=== PATIENT | female | born 1995 | race Caucasian/White ===

== ENCOUNTER 2016-07-02 17:48 | Emergency (ER) | payer BC, OTHER ==
[2016-07-02] MEDS ORDERED: SODIUM CHLORIDE 0.9% 1,000 ML IV ONE (18:18)
[2016-07-02] MEDS ORDERED: methylPREDNISolone SOD SUCCI 125 MG/2 ML VIAL IV STA (18:22)
--- NOTE | 2016-07-02 18:27 | ED ---
General Adult HPI - General Chief complaint: Recheck/Abnormal Lab/Rx Stated complaint: dehyrated Time Seen by Provider: 07/02/16 18:03 Source: patient, RN notes reviewed Mode of arrival: ambulatory Limitations: no limitations - History of Present Illness Initial comments: Patient is a 20-year-old female with chief complaint of sore throat for approximately 3 days. Patient reports that she was diagnosed with strep throat on with a positive rapid strep in [place]. She was placed on azithromycin. Patient reports that today would be her last day of antibiotics. Patient reports that she went to urgent care today and they did give her an injection of clindamycin. She was instructed to come here and she feels that she is dehydrated. Patient reports that she's taken Motrin and Tylenol. If that she's having a difficult time swallowing but does not feel that her airway is closing. Patient reports that she is currently taking doxycycline for acne. Patient denies any recent fever, chills, shortness of breath, chest pain, back pain, abdominal pain, nausea vomiting, numbness or tingling, dysuria or hematuria, constipation or diarrhea, headaches or visual changes, or any other current symptoms - Related Data Home Medications Medication Instructions Recorded Confirmed Levonor 0.15/0.03 Tab 1 tab PO DAILY 04/14/16 04/14/16 Previous Rx's Medication Instructions Recorded Metoclopramide [Reglan] 10 mg PO BID #12 tab 04/14/16 Clindamycin [Cleocin] 300 mg PO TID 10 Days 07/02/16 Allergies Allergy/AdvReac Type Severity Reaction Status Date / Time Penicillins Allergy Rash/Hives Verified 07/02/16 18:00 Review of Systems ROS Statement: Those systems with pertinent positive or pertinent negative responses have been documented in the HPI. ROS Other: All systems not noted in ROS Statement are negative. Past Medical History Past Medical History: No Reported History History of Any Multi-Drug Resistant Organisms: None Reported Additional Past Surgical History / Comment(s): rt ankle surgery Past Psychological History: No Psychological Hx Reported Smoking Status: Current every day smoker Past Alcohol Use History: Occasional Past Drug Use History: None Reported General Exam - General Exam Comments Initial Comments: Well-appearing 20-year-old female. Patient doesn't appear to be in any acute distress. Limitations: no limitations General appearance: alert, in no apparent distress Head exam: Present: atraumatic, normocephalic, normal inspection Eye exam: Present: normal appearance, PERRL, EOMI. Absent: scleral icterus, conjunctival injection, periorbital swelling ENT exam: Present: normal exam, mucous membranes moist, TM's normal bilaterally. Absent: normal oropharynx (Patient has enlarged erythematous tonsils with multiple exudates. No evidence of tonsillar abscess.) Neck exam: Present: normal inspection. Absent: tenderness, meningismus, lymphadenopathy Respiratory exam: Present: normal lung sounds bilaterally. Absent: respiratory distress, wheezes, rales, rhonchi, stridor Cardiovascular Exam: Present: regular rate, normal rhythm, normal heart sounds. Absent: systolic murmur, diastolic murmur, rubs, gallop, clicks GI/Abdominal exam: Present: soft, normal bowel sounds. Absent: distended, tenderness, guarding, rebound, rigid Extremities exam: Present: normal inspection, full ROM, normal capillary refill. Absent: tenderness, pedal edema, joint swelling, calf tenderness Back exam: Present: normal inspection Neurological exam: Present: alert, oriented X3, CN II-XII intact Psychiatric exam: Present: normal affect, normal mood Skin exam: Present: warm, dry, intact, normal color. Absent: rash Course Vital Signs 07/02/16 17:58 Temperature 98.0 F Pulse Rate 100 Respiratory 20 Rate Blood Pressure 126/89 O2 Sat by Pulse 99 Oximetry Medical Decision Making - Medical Decision Making Patient is a 20-year-old female with chief complaint of sore throat for approximately 3 days. Patient reports that she was diagnosed with strep throat on with a positive rapid strep in [place]. She was placed on azithromycin. Patient reports that today would be her last day of antibiotics. Patient was given IV fluids and lab work was obtained. Patient did have negative rapid strep and heterophile. We will add the EBV titers. Patient does not have a white count any joint abnormalities. Patient has no evidence of tonsillar abscess but her tonsils are covered with exudate. Is likely the patient could have mono and we do not have a positive mono heterophile today. I did discuss the case with Dr. Logan. He did do a [id number] interview with the patient. We discussed the patient needs to discontinue taking her doxycycline while taking clindamycin. We did discuss the risk of C. difficile and patient needs to take yogurt and probiotics with taking antibiotic. I did advise patient that she is follow-up with her primary care provider on Monday or Monday. Patient was given a note for school. Return parameters were discussed. We also discussed the patient likely will need to have her tonsils removed at some point as this is a recurring issue. - Lab Data Result diagrams: 07/02/16 18:35 07/02/16 18:35 Lab Results 07/02/16 07/02/16 07/02/16 Range/Units 18:35 18:35 18:35 WBC 5.5 (4.0-11.0) k/uL RBC 4.75 (3.80-5.40) m/uL Hgb 14.6 (11.4-16.0) gm/dL Hct 41.5 (34.0-46.0) % MCV 87.3 (80.0-100.0) fL MCH 30.7 (25.0-35.0) pg MCHC 35.2 (31.0-37.0) g/dL RDW 12.6 (11.5-15.5) % Plt Count 173 (150-450) k/uL Neutrophils % 65 % Lymphocytes % 22 % Monocytes % 8 % Eosinophils % 1 % Basophils % 1 % Neutrophils # 3.6 (1.3-7.7) k/uL Lymphocytes # 1.2 (1.0-4.8) k/uL Monocytes # 0.4 (0-1.0) k/uL Eosinophils # 0.1 (0-0.7) k/uL Basophils # 0.0 (0-0.2) k/uL Sodium 140 (137-145) mmol/L Potassium 3.9 (3.5-5.1) mmol/L Chloride 101 (98-107) mmol/L Carbon Dioxide 23 (22-30) mmol/L Anion Gap 16 mmol/L BUN 15 (7-17) mg/dL Creatinine 0.76 (0.52-1.04) mg/dL Est GFR (MDRD) Af Amer >60 (>60 ml/min/1.73 sqM) Est GFR (MDRD) Non-Af >60 (>60 ml/min/1.73 sqM) Glucose 66 L (74-99) mg/dL Calcium 8.8 (8.4-10.2) mg/dL Total Bilirubin 0.6 (0.2-1.3) mg/dL AST 25 (14-36) U/L ALT 29 (9-52) U/L Alkaline Phosphatase 64 (38-126) U/L Total Protein 7.1 (6.3-8.2) g/dL Albumin 4.0 (3.5-5.0) g/dL Heterophile Antibody Negative (Negative) Group A Strep Rapid (Negative) 07/02/16 Range/Units 18:35 WBC (4.0-11.0) k/uL RBC (3.80-5.40) m/uL Hgb (11.4-16.0) gm/dL Hct (34.0-46.0) % MCV (80.0-100.0) fL MCH (25.0-35.0) pg MCHC (31.0-37.0) g/dL RDW (11.5-15.5) % Plt Count (150-450) k/uL Neutrophils % % Lymphocytes % % Monocytes % % Eosinophils % % Basophils % % Neutrophils # (1.3-7.7) k/uL Lymphocytes # (1.0-4.8) k/uL Monocytes # (0-1.0) k/uL Eosinophils # (0-0.7) k/uL Basophils # (0-0.2) k/uL Sodium (137-145) mmol/L Potassium (3.5-5.1) mmol/L Chloride (98-107) mmol/L Carbon Dioxide (22-30) mmol/L Anion Gap mmol/L BUN (7-17) mg/dL Creatinine (0.52-1.04) mg/dL Est GFR (MDRD) Af Amer (>60 ml/min/1.73 sqM) Est GFR (MDRD) Non-Af (>60 ml/min/1.73 sqM) Glucose (74-99) mg/dL Calcium (8.4-10.2) mg/dL Total Bilirubin (0.2-1.3) mg/dL AST (14-36) U/L ALT (9-52) U/L Alkaline Phosphatase (38-126) U/L Total Protein (6.3-8.2) g/dL Albumin (3.5-5.0) g/dL Heterophile Antibody (Negative) Group A Strep Rapid Negative (Negative) Disposition Clinical Impression: Pharyngitis Disposition: HOME SELF-CARE Condition: Good Instructions: Pharyngitis (ED) Additional Instructions: Patient advised to discontinue taking doxycycline while taking the new antibiotic of clindamycin. Patient advised to follow-up with primary care provider on Monday or Monday. Patient also advised to repeat titers in approximately 3 weeks. Patient voiced return the emergency Department if any alarming signs or symptoms occur. Continue taking Motrin Tylenol for pain and fevers. Prescriptions: Clindamycin [Cleocin] 300 mg PO TID 10 Days Referrals: Katalina Carver DO [Primary Care Provider] - 1-2 days Time of Disposition: 19:39
[2016-07-02] MEDS ORDERED: SODIUM CHLORIDE 0.9% 1,000 ML IV SCH (18:30)
[2016-07-02 18:45] LABS: Basophils % (A) 1 %; CHCM 35.8; Eosinophils # (A) 0.1 k/uL (0-0.7); Eosinophils % (A) 1 %; HCT 41.5 % (34.0-46.0); HDW 3.06; HGB 14.6 gm/dL (11.4-16.0); Luc # (Auto) 0.18; Luc % (Auto) 3; Lymphocytes # (A) 1.2 k/uL (1.0-4.8); Lymphocytes % (A) 22 %; MCH 30.7 pg (25.0-35.0); MCHC 35.2 g/dL (31.0-37.0); MCV 87.3 fL (80.0-100.0); Mean Platelet Volume 7.8; Monocytes # (A) 0.4 k/uL (0-1.0); Monocytes % (A) 8 %; Neutrophils # (A) 3.6 k/uL (1.3-7.7); Neutrophils % (A) 65 %; RBC 4.75 m/uL (3.80-5.40); RDW 12.6 % (11.5-15.5); WBC 5.5 k/uL (4.0-11.0); WBC (Perox) 5.14
[2016-07-02 18:55] LABS: ALT 29 U/L (9-52); AST 25 U/L (14-36); Alkaline Phosphatase 64 U/L (38-126); Anion Gap 16 mmol/L; Blood Urea Nitrogen 15 mg/dL (7-17); Calcium 8.8 mg/dL (8.4-10.2); Carbon Dioxide 23 mmol/L (22-30); Chloride 101 mmol/L (98-107); Glucose 66 mg/dL (74-99); Non-African American GFR(MDRD) >60 (>60 ml/min/1.73 sqM); Potassium 3.9 mmol/L (3.5-5.1); Sodium 140 mmol/L (137-145); Total Bilirubin 0.6 mg/dL (0.2-1.3); Total Protein 7.1 g/dL (6.3-8.2)
[2016-07-02 20:19] VITALS: BP 117/71; PULSE 90; RESP 16; TEMP 98.3
[2016-07-05 06:57] LABS: EBV - EA (IgG) <5.0 U/mL (<9.0); EBV - EBNA (IgG) 79.5 U/mL (<18.0); EBV - VCA (IgG) 64.5 U/mL (<18.0); EBV - VCA IgM <10.0 U/mL (<36.0)
== END 2016-07-02 20:18 | disposition home or self-care (01) ==
LOC: EC 17:48
DX: J02.9 Acute pharyngitis, unspecified (principal); F17.200 Nicotine dependence, unspecified, uncomplicated; Z88.0 Allergy status to penicillin; Z79.3 Long term (current) use of hormonal contraceptives; Z79.899 Other long term (current) drug therapy
CPT/HCPCS: 99283; 96374; 96361 ×2; 36415; 86665 ×2; 80053; 86663; 86664; 85025; 86308; 87070; 87430; J2930; 87081

== ENCOUNTER → 2021-02-09 | Outpatient (CLI) | payer BC, OTHER ==
[2021-02-09 14:46] LABS: Appearance,Urine Clear (Clear); Bilirubin,Urine Negative (Negative); Blood,Urine Negative (Negative); Color,Urine Colorless; Glucose,Urine (UA) Negative (Negative); Ketones,Urine Negative (Negative); Leukocyte Esterase,Urine Negative (Negative); Nitrite,Urine Negative (Negative); PH, Urine 5.5 (5.0-8.0); Protein,Urine Negative (Negative); Specific Gravity,Urine 1.004 (1.001-1.035); Urobilinogen,Urine <2.0 mg/dL (<2.0)
[2021-02-10 12:49] LABS: Urine Alcohol Negative (Negative); Urine Barbiturate Negative (Negative); Urine Cocaine Negative (Negative); Urine Methadone Negative (Negative); Urine Opiates Negative (Negative); Urine Phencyclidine Negative (Negative)
== END | disposition home or self-care (01) ==
LOC: LABWHC1 12:20
PROVIDERS: ATTEND Physician Assistant Medical
DX: F43.10 Post-traumatic stress disorder, unspecified (principal); R63.6 Underweight; F50.9 Eating disorder, unspecified
CPT/HCPCS: 80306; 81003